=== PATIENT | female | born 1970 | race Caucasian/White ===

== ENCOUNTER → 2016-02-19 | Outpatient (CLI) | payer BC ==
[~2016-02-19] VITALS: Ht 167.6 cm; Wt 116.3 kg
[~2016-02-19] MED LIST: ABILIFY 10MG TA10 MG PO; ABILIFY5 MG PO; ADVIL200 MG PO; ALEVE 220MG220 MG PO; BIOTIN300 MCG PO; DAZIDOX20 MG PO; DYAZIDE 25 MG-31 CAP PO; ENBREL50 MG/ML SC; FENTANYL 100MCG TOP; FENTANYL 50MCG TP; FOLIC ACID 11 MG/TA1 PO; GLUCOPHAGE XR500 M1 PO; GLUCOPHAGE500 MG/TAB PO; HUMIRA40 MG/0.8 SQ; LEXAPRO 10MG10 MG PO; LINZESS145CAP PO; MAXALT10 MG PO; METHOTREXA2.5 MG/TAB PO; MULTIPLE VITAMI1 CAP PO; NORCO 325 MG-101 TAB PO; OMEGA-3 1000 MG1 CAP PO; OTREXUP25 MG/0.4 SQ; OXYCONTIN40 MG PO; PAXIL 30MG30 MG PO; PHENTERMINE15 MG; PLAQUENIL 200M200 MG PO; SYNTHROID0.05 MG/TA PO; TOPAMAX50 MG PO; VOLTAREN 50MG T50 MG PO; WELLBUTRIN XL300 M1 PO; XANAX .25M0.25 MG/TA PO
[2016-02-19 14:18] VITALS: BP 126/50; PULSE 77
[2016-02-19 14:41] VITALS: BP 126/50; PULSE 77
== END ==
LOC: LIGHT 11:46
DX: E88.81 Metabolic syndrome and other insulin resistance (principal); E66.01 Morbid (severe) obesity due to excess calories; Z68.41 Body mass index [BMI] 40.0-44.9, adult

== ENCOUNTER → 2016-03-25 | Outpatient (CLI) | payer BC ==
[~2016-03-25] VITALS: Ht 167.6 cm; Wt 116.6 kg
== END ==
LOC: LIGHT 01-22 10:46
DX: E88.81 Metabolic syndrome and other insulin resistance (principal); E66.01 Morbid (severe) obesity due to excess calories; Z68.41 Body mass index [BMI] 40.0-44.9, adult

== ENCOUNTER → 2016-04-22 | Outpatient (CLI) | payer BC ==
[~2016-04-22] VITALS: Ht 167.6 cm; Wt 117.0 kg
[2016-04-22 14:00] VITALS: BP 124/55; PULSE 60
== END ==
LOC: LIGHT 13:55
DX: M06.80 Other specified rheumatoid arthritis, unspecified site (principal); R73.01 Impaired fasting glucose; E88.81 Metabolic syndrome and other insulin resistance; E66.01 Morbid (severe) obesity due to excess calories; Z68.41 Body mass index [BMI] 40.0-44.9, adult

== ENCOUNTER → 2016-05-13 | Outpatient (CLI) | payer BC | LOC: BHSO 08:55 | DX: Z01.818 Encounter for other preprocedural examination (principal) ==

== ENCOUNTER → 2016-05-31 | Outpatient (CLI) | payer BC ==
[~2016-05-31] VITALS: Ht 167.6 cm; Wt 117.9 kg
[2016-05-31 15:53] VITALS: BP 122/51; PULSE 89
== END ==
LOC: LIGHT 14:44
DX: E88.81 Metabolic syndrome and other insulin resistance (principal); M06.80 Other specified rheumatoid arthritis, unspecified site; E66.01 Morbid (severe) obesity due to excess calories; Z68.41 Body mass index [BMI] 40.0-44.9, adult; Z90.49 Acquired absence of other specified parts of digestive tract; Z90.79 Acquired absence of other genital organ(s)

== ENCOUNTER → 2016-06-29 | Outpatient (CLI) | payer BC | LOC: LIGHT 13:05 | DX: Z02.89 Encounter for other administrative examinations (principal) ==

== ENCOUNTER 2016-07-13 10:11 | Day surgery (SDC) | payer BC ==
[2016-07-13] VITALS (10 sets, daily range): BP systolic 117–153; BP diastolic 65–83; PULSE 61–74; TEMP 16
[~2016-07-13] VITALS: Ht 167.6 cm; Wt 119.4 kg
[~2016-07-13 10:11] MED LIST changes: -BIOTIN300 MCG PO; -HUMIRA40 MG/0.8 SQ; -LEXAPRO 10MG10 MG PO; -MAXALT10 MG PO; -MULTIPLE VITAMI1 CAP PO; -OMEGA-3 1000 MG1 CAP PO; -WELLBUTRIN XL300 M1 PO
[2016-07-13] MEDS ORDERED: MAXALT10 MG PO (11:09)
[2016-07-13] MEDS ORDERED: OMEGA-3 1000 MG1 CAP PO (11:11)
[2016-07-13] MEDS ORDERED: DYAZIDE 25 MG-31 CAP PO (11:15)
[2016-07-13] MEDS ORDERED: WELLBUTRIN XL300 M1 PO (11:16)
[2016-07-14 01:18] VITALS: BP 139/67; PULSE 66; TEMP 98
[2016-07-14 05:15] VITALS: BP 139/64; PULSE 69; TEMP 98.4
[2016-07-14 09:48] VITALS: BP 148/63; PULSE 67; TEMP 97.9
[2016-07-26] MEDS ORDERED: MULTIPLE VITAMI1 CAP PO (16:08)
[2016-07-26] MEDS ORDERED: BIOTIN300 MCG PO (16:09)
[2016-08-23] MEDS ORDERED: LEXAPRO 10MG10 MG PO (16:59)
[2016-10-04] MEDS ORDERED: HUMIRA40 MG/0.8 SQ (16:17)
[2016-10-04] MEDS ORDERED: PAXIL 30MG30 MG PO (16:17)
== END 2016-07-14 14:30 | disposition home or self-care (01) ==
LOC: SDCO 10:11 → SURG 15:00 → SDCO 07-14 14:30
DX: E66.01 Morbid (severe) obesity due to excess calories (principal); Z68.41 Body mass index [BMI] 40.0-44.9, adult; M06.9 Rheumatoid arthritis, unspecified; G47.33 Obstructive sleep apnea (adult) (pediatric); Z87.891 Personal history of nicotine dependence; E11.9 Type 2 diabetes mellitus without complications; F33.9 Major depressive disorder, recurrent, unspecified; G43.909 Migraine, unspecified, not intractable, without status migrainosus
CPT/HCPCS: OP; J1170; J2405; J2550; J2704; J3010; J7120; Q9968

== ENCOUNTER → 2016-07-26 | Outpatient (CLI) | payer BC ==
[~2016-07-26] VITALS: Ht 167.6 cm; Wt 109.5 kg
[~2016-07-26] MED LIST changes: +BIOTIN300 MCG PO; +HUMIRA40 MG/0.8 SQ; +LEXAPRO 10MG10 MG PO; +MAXALT10 MG PO; +MULTIPLE VITAMI1 CAP PO; +OMEGA-3 1000 MG1 CAP PO; +WELLBUTRIN XL300 M1 PO
[2016-07-26 16:10] VITALS: BP 124/59; PULSE 87
== END ==
LOC: LIGHT 11:42
DX: Z02.89 Encounter for other administrative examinations (principal)

== ENCOUNTER → 2016-08-23 | Outpatient (CLI) | payer BC ==
[~2016-08-23] VITALS: Ht 167.6 cm; Wt 105.2 kg
[2016-08-23 17:00] VITALS: BP 123/50; PULSE 75
== END ==
LOC: LIGHT 09:04
DX: M06.9 Rheumatoid arthritis, unspecified (principal); E88.81 Metabolic syndrome and other insulin resistance; E66.01 Morbid (severe) obesity due to excess calories; Z68.37 Body mass index [BMI] 37.0-37.9, adult; Z71.3 Dietary counseling and surveillance